=== PATIENT | male | born 1930 | race Caucasian/White ===

== ENCOUNTER 2021-02-25 12:24 | Outpatient (CLI) | payer OTHER ==
[2021-02-25 13:11] LABS: Estimated GFR-MDRD - POC Greater than 90
== END 2021-02-25 12:25 | disposition home or self-care (01) ==
LOC: CSHMRI 12:24
PROVIDERS: ATTEND Radiology Radiation Oncology
DX: C61 Malignant neoplasm of prostate (principal); K57.90 Diverticulosis of intestine, part unspecified, without perforation or abscess without bleeding
CPT/HCPCS: 72197; 82565